=== PATIENT | female | born 1960 | race Caucasian/White ===

== ENCOUNTER 2017-12-11 14:37 | Emergency (ER) | payer MEDICAID ==
[~2017-12-11] VITALS: Ht 160 cm; Wt 55.0 kg
[2017-12-11 14:37] VITALS: BP 166/82
[2017-12-11] MEDS ORDERED: METOCLOPRAMIDE 5 MG/ML, 2ML ONE (14:48)
[2017-12-11] MEDS ORDERED: DICYCLOMINE 10 MG/ML, 2ML ONE (14:48)
[2017-12-11] MEDS ORDERED: SODIUM CHLORIDE 0.9% 1,000ML IVBOLUS ONE (15:00)
[2017-12-11] MEDS ORDERED: SODIUM CHLORIDE FLUSH 10ML SYR IVF ONE (15:00)
[2017-12-11] MEDS ORDERED: METOCLOPRAMIDE 5 MG/ML, 2ML IVPush ONE (15:00)
[2017-12-11] MEDS ORDERED: DICYCLOMINE 10 MG/ML, 2ML IM ONE (15:00)
[2017-12-11 15:06] LABS: ANION GAP 10 mmol/L (5-15); CALCIUM 9.7 mg/dL (8.5-10.1); CHLORIDE 104 mmol/L (98-107); CREATININE 0.77 mg/dL (0.55-1.02)
[2017-12-11 15:07] LABS: ALANINE AMINOTRANSFERASE 25 U/L (12-78); ALBUMIN 4.4 g/dL (3.4-5.0)
[2017-12-11 15:08] LABS: MICROSCOPIC AUTO
[2017-12-11 15:09] LABS: CULTURE INDICATED? NO
[2017-12-11 15:23] LABS: BILIRUBIN,TOTAL 0.6 mg/dL (0.2-1.0)
[2017-12-11 15:24] LABS: ALKALINE PHOSPHATASE 86 U/L (45-117)
[2017-12-11 15:31] LABS: BASOPHILS % (AUTO) 0 % (0-1); EOSINOPHILS # (AUTO) 0.01 x10^3/uL (0-0.4); EOSINOPHILS % (AUTO) 0 % (1-7); LYMPHOCYTES # (AUTO) 1.08 x10^3/uL (1-3.4); LYMPHOCYTES % (AUTO) 10 % (22-44); MD SCAN; MEAN CORPUSCULAR HEMOGLOBIN 31.9 pg (27.0-34.8); MEAN CORPUSCULAR HGB CONC 33.9 g/dL (32.4-35.8); MEAN CORPUSCULAR VOLUME 93.9 fL (80-100); MEAN PLATELET VOLUME 10.1 fL (7.4-10.4); MONOCYTES # (AUTO) 0.24 x10^3/uL (0.2-0.8); MONOCYTES % (AUTO) 2 % (2-9); NEUTROPHILS # (AUTO) 9.46 x10^3/uL (1.8-6.8); NEUTROPHILS % (AUTO) 88 % (42-75); PLATELET COUNT 205 x10^3/uL (130-400); RED BLOOD COUNT 4.87 x10^6/uL (3.82-5.3); RED CELL DISTRIBUTION WIDTH 13.2 % (9.6-15.2)
== END 2017-12-11 16:24 | disposition home or self-care (01) ==
LOC: ED 15:32
DX: K52.9 Noninfective gastroenteritis and colitis, unspecified (principal); E86.0 Dehydration; R93.5 Abnormal findings on diagnostic imaging of other abdominal regions, including retroperitoneum; J44.9 Chronic obstructive pulmonary disease, unspecified; I10 Essential (primary) hypertension; F17.200 Nicotine dependence, unspecified, uncomplicated
CPT/HCPCS: 36415; 74022; 80053; 81001; 83690; 85025; 93005; 96361; 96372; 96374; 99285; J0500; J2765; J7030

== ENCOUNTER 2018-07-08 10:08 | Emergency (ER) | payer MEDICAID ==
[~2018-07-08] VITALS: Ht 154.9 cm; Wt 48.7 kg
[2018-07-08 10:25] VITALS: BP 150/83
[2018-07-08] MEDS ORDERED: DEXAMETHASONE 4 MG/ML, 1ML PO ONE (11:00)
[2018-07-08] MEDS ORDERED: DEXAMETHASONE 4 MG TABLET ONE (11:07)
== END 2018-07-08 11:13 | disposition home or self-care (01) ==
LOC: ED 11:07
DX: J44.1 Chronic obstructive pulmonary disease with (acute) exacerbation (principal); B34.9 Viral infection, unspecified; I10 Essential (primary) hypertension; F17.200 Nicotine dependence, unspecified, uncomplicated
CPT/HCPCS: 71046; 99283; J1100

== ENCOUNTER 2018-12-20 09:32 | Emergency (ER) | payer MEDICAID ==
[~2018-12-20] VITALS: Ht 154.9 cm; Wt 48.4 kg
[2018-12-20 10:55] LABS: ALANINE AMINOTRANSFERASE 22 U/L (12-78); ALBUMIN 3.8 g/dL (3.4-5.0); ANION GAP 8 mmol/L (5-15); CALCIUM 8.4 mg/dL (8.5-10.1); CHLORIDE 105 mmol/L (98-107); CREATININE 0.62 mg/dL (0.55-1.02)
[2018-12-20 10:57] LABS: ALKALINE PHOSPHATASE 88 U/L (45-117); BILIRUBIN,TOTAL 0.3 mg/dL (0.2-1.0); TOTAL PROTEIN 6.9 g/dL (6.4-8.2)
[2018-12-20 11:02] LABS: MEAN CORPUSCULAR HEMOGLOBIN 34.2 pg (27.0-34.8); MEAN CORPUSCULAR VOLUME 100.6 fL (80-100); MEAN PLATELET VOLUME 10.1 fL (7.4-10.4); PLATELET COUNT 177 x10^3/uL (130-400); RED BLOOD COUNT 4.02 x10^6/uL (3.82-5.3); RED CELL DISTRIBUTION WIDTH 13.4 % (9.6-15.2)
[2018-12-20 11:03] LABS: BASOPHILS # (AUTO) 0.04 x10^3/uL (0-0.1); BASOPHILS % (AUTO) 1 % (0-1); EOSINOPHILS # (AUTO) 0.21 x10^3/uL (0-0.4); EOSINOPHILS % (AUTO) 3 % (1-7); LYMPHOCYTES # (AUTO) 2.84 x10^3/uL (1-3.4); LYMPHOCYTES % (AUTO) 44 % (22-44); MD SCAN; MONOCYTES # (AUTO) 0.36 x10^3/uL (0.2-0.8); MONOCYTES % (AUTO) 6 % (2-9); NEUTROPHILS # (AUTO) 3.03 x10^3/uL (1.8-6.8); NEUTROPHILS % (AUTO) 47 % (42-75)
--- NOTE | 2018-12-20 12:00 | NUR ---
PER REGISTRATION STAFF, PT REQUESTING TO LEAVE. THIS SENIOR PRINCIPAL PROCESS ENGINEER OUT TO SPEAK C PT, PT STATES THAT SHE WILL CONTINUE TO WAIT AT THIS TIME. DENIES ANY SPECIFIC NEEDS. UNDERSTANDS POC.
--- NOTE | 2018-12-20 12:20 | NUR ---
PT TO ROOM FROM LOBBY. ERP IN TO SEE PT.
[2018-12-20 13:01] VITALS: BP 128/71
== END 2018-12-20 13:03 | disposition home or self-care (01) ==
LOC: ED 12:49
DX: R11.10 Vomiting, unspecified (principal); I10 Essential (primary) hypertension; E78.5 Hyperlipidemia, unspecified
CPT/HCPCS: 36415; 74021; 80053; 83690; 85025; 99284

== ENCOUNTER 2019-06-19 15:19 | Inpatient (IN) | payer MEDICAID ==
[~2019-06-19] VITALS: Ht 152.4 cm; Wt 47.5 kg
[~2019-06-19 15:19] MED LIST: CETI10TA32 PO; HYDR25TA6 PO; LISI-170 PO; LORA10TA62 PO; OMEP-110 PO
[2019-06-19] MEDS ORDERED: SODIUM CHLORIDE 0.9% 1,000 ML IV ONE (15:37)
[2019-06-19] MEDS ORDERED: ALBUTEROL/IPRATROPIUM 2.5MG/0.5MG, 3 ML ONE (15:42)
--- NOTE | 2019-06-19 15:56 | NUR ---
RT & JUSTUSG BS. LABS HAVE BEEN DRAWN
[2019-06-19] MEDS ORDERED: ALBUTEROL/IPRATROPIUM 2.5MG/0.5MG, 3 ML NPPB ONE (16:00)
[2019-06-19] MEDS ORDERED: SODIUM CHLORIDE FLUSH 10ML SYR IVF ONE (16:00)
[2019-06-19] MEDS ORDERED: methylPREDNISolone SOD SUCC 125 MG/2 ML IVPush ONE (16:00)
[2019-06-19] MEDS ORDERED: AZITHROMYCIN 500 MG in SODIUM CHLORIDE 0.9% 250 ML IVPB ONE (16:00)
[2019-06-19] MEDS ORDERED: methylPREDNISolone SOD SUCC 125 MG/2 ML ONE (16:10)
[2019-06-19] MEDS ORDERED: ONDANSETRON 2MG/ML, 2ML ONE (16:10)
--- NOTE | 2019-06-19 16:10 | NUR ---
REQUESTING ANTI-NAUSEA MED; ERP WILL BE NOTIFIED
--- NOTE | 2019-06-19 16:19 | NUR ---
BLOOD CX BAND ON PT WRIST
[2019-06-19 16:22] LABS: TROPONIN I < 0.015 ng/mL (0.000-0.045)
[2019-06-19] MEDS ORDERED: ONDANSETRON 2MG/ML, 2ML IVPush ONE ×2 (16:30→23:30)
[2019-06-19 16:33] LABS: RAPID INFLUENZA A Negative (Negative); RAPID INFLUENZA B Negative (Negative)
--- NOTE | 2019-06-19 16:34 | NUR ---
DAVIANTHROMAIshan HERNANDEZ, INFUSING AT 250ML/HR VIA PUMP. IV SITE PATENT.
[2019-06-19 16:43] LABS: BASOPHILS # (AUTO) 0.04 x10^3/uL (0-0.1); BASOPHILS % (AUTO) 1 % (0-1); EOSINOPHILS % (AUTO) 1 % (1-7); LYMPHOCYTES # (AUTO) 1.91 x10^3/uL (1-3.4); LYMPHOCYTES % (AUTO) 21 % (22-44); MD NO; MEAN CORPUSCULAR HEMOGLOBIN 32.8 pg (27.0-34.8); MEAN CORPUSCULAR HGB CONC 33.1 g/dL (32.4-35.8); MEAN CORPUSCULAR VOLUME 99.2 fL (80-100); MEAN PLATELET VOLUME 10.7 fL (7.4-10.4); MONOCYTES # (AUTO) 0.51 x10^3/uL (0.2-0.8); MONOCYTES % (AUTO) 6 % (2-9); NEUTROPHILS # (AUTO) 6.47 x10^3/uL (1.8-6.8); NEUTROPHILS % (AUTO) 72 % (42-75); PLATELET COUNT 271 x10^3/uL (130-400); RED CELL DISTRIBUTION WIDTH 15.1 % (9.6-15.2)
--- NOTE | 2019-06-19 17:11 | NUR ---
PT REPORT TO YAEL: BREAK RN'S. PT CARE TRANSFERRED.
[2019-06-19] MEDS ORDERED: LORazepam 2 MG/ML, 1ML ONE (17:17)
--- NOTE | 2019-06-19 17:23 | NUR ---
BREAK RN: PATIENT MEDICATED PER EMAR.
[2019-06-19] MEDS ORDERED: LORazepam 2 MG/ML, 1ML IVPush ONE (17:30)
--- NOTE | 2019-06-19 17:53 | NUR ---
PT REPORT TO BJORN DE LEON FOR ROOM 369
[2019-06-19] MEDS ORDERED: NICOTINE 7 MG/24 HR PATCH.TD24 TD SCH (18:00)
[2019-06-19] MEDS ORDERED: OMEP20CA14 PO (18:04)
[2019-06-19] MEDS ORDERED: SUMA50TA4 PO (18:04)
[2019-06-19] MEDS ORDERED: UMEC1DIS INH (18:04)
[2019-06-19] MEDS ORDERED: LISI10TA2 PO (18:04)
[2019-06-19] MEDS ORDERED: LORA10TA41 PO (18:04)
[2019-06-19] MEDS ORDERED: FLUT1AER3 INH (18:04)
--- NOTE | 2019-06-19 18:04 | NUR ---
PT UNABLE TO RECALL NAMES OF MEDICATIONS. EXTERNAL MED HX ACCESSED. Addendum: 06/19/19 at 1805 by GANESH EXTERNAL MEDICINE HISTORY ACCESSED.
[2019-06-19 19:02] VITALS: BP 169/84
[2019-06-19 20:11] LABS: CREATININE 0.67 mg/dL (0.55-1.02)
[2019-06-19] MEDS: ALBUTEROL SULFATE 2.5 MG/3 ML NPPB SCH (20:49)
[2019-06-19] MEDS: BUDESONIDE 0.5 MG/2 ML INHA NPPB SCH ×2 (20:49→21:00)
[2019-06-19] MEDS ORDERED: OMNIPAQUE 350 MG/ML, 100ML BOTTLE ONE (22:24)
[2019-06-19] MEDS ORDERED: MELATONIN 5 MG TABLET PO PRN (23:30)
[2019-06-20 00:28] VITALS: BP 96/52
[2019-06-20] MEDS: ALBUTEROL SULFATE 2.5 MG/3 ML NPPB SCH ×4 (03:00→20:13)
[2019-06-20 07:54] LABS: CALCIUM 9.2 mg/dL (8.5-10.1); CHLORIDE 106 mmol/L (98-107)
[2019-06-20 08:04] LABS: BASOPHILS # (AUTO) 0.04 x10^3/uL (0-0.1); BASOPHILS % (AUTO) 0 % (0-1); EOSINOPHILS # (AUTO) 0.01 x10^3/uL (0-0.4); EOSINOPHILS % (AUTO) 0 % (1-7); LYMPHOCYTES # (AUTO) 2.34 x10^3/uL (1-3.4); LYMPHOCYTES % (AUTO) 25 % (22-44); MD SCAN; MEAN CORPUSCULAR HEMOGLOBIN 32.4 pg (27.0-34.8); MEAN CORPUSCULAR HGB CONC 33.5 g/dL (32.4-35.8); MEAN CORPUSCULAR VOLUME 96.7 fL (80-100); MEAN PLATELET VOLUME 10.2 fL (7.4-10.4); MONOCYTES # (AUTO) 0.88 x10^3/uL (0.2-0.8); MONOCYTES % (AUTO) 9 % (2-9); NEUTROPHILS # (AUTO) 6.07 x10^3/uL (1.8-6.8); NEUTROPHILS % (AUTO) 65 % (42-75); PLATELET COUNT 265 x10^3/uL (130-400); RED BLOOD COUNT 4.24 x10^6/uL (3.82-5.3)
[2019-06-20 08:06] LABS: ANION GAP 9 mmol/L (5-15)
[2019-06-20] MEDS ORDERED: ONDANSETRON ODT 4 MG PO ONE (08:30)
[2019-06-20] MEDS ORDERED: POTASSIUM CHLORIDE 20 MEQ TAB.ER.PRT PO ONE ×3 (08:30→13:00)
[2019-06-20] MEDS ORDERED: PNEUMOCOCCAL 23 VACCINE IM-VACC ONE (08:30)
[2019-06-20 08:39] VITALS: BP 111/67
[2019-06-20] MEDS ORDERED: HYDROCHLOROTHIAZIDE 25 MG TABLET PO SCH (09:00)
[2019-06-20] MEDS: HYDROCHLOROTHIAZIDE 25 MG TABLET PO SCH (09:00)
[2019-06-20] MEDS: BUDESONIDE 0.5 MG/2 ML INHA NPPB SCH ×2 (09:00→20:14)
[2019-06-20] MEDS ORDERED: OMEPRAZOLE 20 MG CAPSULE.DR PO SCH (09:00)
[2019-06-20] MEDS ORDERED: LISINOPRIL 10 MG TABLET PO SCH (09:00)
[2019-06-20] MEDS ORDERED: CETIRIZINE 10 MG TABLET PO SCH (09:00)
[2019-06-20] MEDS: (Umeclidinium Brm/Vilanterol Tr (Anoro Ellipta 62.5-25 Mcg Inh INH SCH (09:00)
[2019-06-20] MEDS: NICOTINE 21 MG/24 HR PATCH.TD24 TD SCH (09:20)
[2019-06-20] MEDS: AZITHROMYCIN 250 MG TABLET PO SCH (09:21)
[2019-06-20] MEDS: LISINOPRIL 10 MG TABLET PO SCH (09:22)
[2019-06-20 11:55] LABS: CALCIUM 9.2 mg/dL (8.5-10.1); CREATININE 0.59 mg/dL (0.55-1.02)
[2019-06-20 12:06] LABS: ANION GAP 9 mmol/L (5-15); CHLORIDE 104 mmol/L (98-107)
[2019-06-20] MEDS: LORATADINE 10 MG TABLET PO SCH (12:43)
[2019-06-20 13:00] VITALS: BP 125/73
[2019-06-20] MEDS: MAGNESIUM OXIDE 400 MG TABLET PO SCH (13:42)
[2019-06-20 16:44] VITALS: BP 119/77
[2019-06-20 19:51] VITALS: BP 123/71
[2019-06-20 21:30] LABS: CLOSTRIDIUM DIFFICILE ANTIGEN NEGATIVE; CLOSTRIDIUM DIFFICILE TOXIN NEGATIVE (Negative)
[2019-06-20] MEDS: ZOLPIDEM 5MG TABLET PO SCH (22:31)
[2019-06-21] VITALS (10 sets, daily range): BP systolic 101–190; BP diastolic 62–96
[2019-06-21] MEDS ORDERED: ONDANSETRON 2MG/ML, 2ML ONE (00:27)
[2019-06-21] MEDS: ONDANSETRON 2MG/ML, 2ML IVPush PRN ×2 (00:28→08:01)
[2019-06-21] MEDS ORDERED: ACETAMINOPHEN 325 MG TABLET PO PRN (01:30)
[2019-06-21] MEDS ORDERED: MORPHINE SULFATE 4 MG/ML, 1ML IVPush PRN (01:30)
[2019-06-21] MEDS ORDERED: hydrALAzine 20 MG/ML, 1ML ONE (01:43)
[2019-06-21] MEDS ORDERED: LABETALOL 5 MG/ML SYR. (IV ONLY) IVPush PRN (02:00)
[2019-06-21] MEDS ORDERED: hydrALAzine 20 MG/ML, 1ML IV PRN (02:00)
[2019-06-21] MEDS: ALBUTEROL SULFATE 2.5 MG/3 ML NPPB SCH ×3 (02:04→19:03)
[2019-06-21 05:35] LABS: ANION GAP 8 mmol/L (5-15); CALCIUM 8.8 mg/dL (8.5-10.1); CHLORIDE 107 mmol/L (98-107)
[2019-06-21] MEDS ORDERED: POTASSIUM CHLORIDE 20 MEQ in SODIUM CHLORIDE 0.9% 250 ML IV ONE (06:00)
[2019-06-21] MEDS: NICOTINE 21 MG/24 HR PATCH.TD24 TD SCH (08:02)
[2019-06-21] MEDS: LORATADINE 10 MG TABLET PO SCH (08:02)
[2019-06-21] MEDS: MAGNESIUM OXIDE 400 MG TABLET PO SCH (08:02)
[2019-06-21] MEDS: AZITHROMYCIN 250 MG TABLET PO SCH (08:04)
[2019-06-21] MEDS: HYDROCHLOROTHIAZIDE 25 MG TABLET PO SCH (08:06)
[2019-06-21] MEDS: LISINOPRIL 10 MG TABLET PO SCH (08:07)
[2019-06-21] MEDS: OMEPRAZOLE 20 MG CAPSULE.DR PO SCH (08:10)
[2019-06-21] MEDS: (Umeclidinium Brm/Vilanterol Tr (Anoro Ellipta 62.5-25 Mcg Inh INH SCH (08:19)
[2019-06-21] MEDS ORDERED: POTASSIUM CHLORIDE 20 MEQ TAB.ER.PRT PO ONE ×2 (12:30→21:30)
[2019-06-21] MEDS ORDERED: LIDODERM 5% PATCH TD PRN (15:00)
[2019-06-21] MEDS ORDERED: LIDODERM REMOVE PATCH NOTE XX PRN (15:00)
[2019-06-21 16:48] LABS: ANION GAP 7 mmol/L (5-15); CALCIUM 9.1 mg/dL (8.5-10.1); CHLORIDE 106 mmol/L (98-107)
[2019-06-21] MEDS: BUDESONIDE 0.5 MG/2 ML INHA NPPB SCH (19:03)
[2019-06-21] MEDS: ZOLPIDEM 5MG TABLET PO SCH (20:08)
[2019-06-22 00:47] VITALS: BP 118/65
[2019-06-22] MEDS: ALBUTEROL SULFATE 2.5 MG/3 ML NPPB SCH ×3 (02:35→15:00)
[2019-06-22] MEDS: BUDESONIDE 0.5 MG/2 ML INHA NPPB SCH (06:40)
[2019-06-22 07:33] LABS: ANION GAP 5 mmol/L (5-15); CHLORIDE 110 mmol/L (98-107); CREATININE 0.59 mg/dL (0.55-1.02)
[2019-06-22 07:36] VITALS: BP 134/94
[2019-06-22] MEDS: AZITHROMYCIN 250 MG TABLET PO SCH (07:38)
[2019-06-22] MEDS: OMEPRAZOLE 20 MG CAPSULE.DR PO SCH (07:38)
[2019-06-22] MEDS: MAGNESIUM OXIDE 400 MG TABLET PO SCH (07:38)
[2019-06-22] MEDS: LORATADINE 10 MG TABLET PO SCH (07:38)
[2019-06-22] MEDS: NICOTINE 21 MG/24 HR PATCH.TD24 TD SCH (07:38)
[2019-06-22] MEDS: LISINOPRIL 10 MG TABLET PO SCH (07:39)
[2019-06-22] MEDS: HYDROCHLOROTHIAZIDE 25 MG TABLET PO SCH (07:41)
[2019-06-22] MEDS: (Umeclidinium Brm/Vilanterol Tr (Anoro Ellipta 62.5-25 Mcg Inh INH SCH (09:00)
[2019-06-22] MEDS ORDERED: PRED20TA PO (12:09)
[2019-06-22] MEDS ORDERED: MAGN400T50 PO (12:09)
[2019-06-22] MEDS ORDERED: AZIT250T89 PO (12:09)
[2019-06-22] MEDS ORDERED: POTA20TA14 PO (12:09)
[2019-06-22] MEDS ORDERED: ALBU2.5V NPPB (12:24)
[2019-06-22 12:33] VITALS: BP 120/60
== END 2019-06-22 18:12 | disposition home or self-care (01) | DRG 189 ==
LOC: ED 17:09 → EDIP 17:14 → 3N 17:30 → 4EST 06-20 15:50
PROVIDERS: ADMIT Family Medicine; ATTEND Family Medicine
DX: J96.21 Acute and chronic respiratory failure with hypoxia (principal); J44.1 Chronic obstructive pulmonary disease with (acute) exacerbation; E87.2 Acidosis; E78.5 Hyperlipidemia, unspecified; I10 Essential (primary) hypertension; K21.9 Gastro-esophageal reflux disease without esophagitis; F17.210 Nicotine dependence, cigarettes, uncomplicated; K40.20 Bilateral inguinal hernia, without obstruction or gangrene, not specified as recurrent; F41.9 Anxiety disorder, unspecified; E87.6 Hypokalemia; Z87.11 Personal history of peptic ulcer disease; Z23 Encounter for immunization; Z79.899 Other long term (current) drug therapy
CPT/HCPCS: 36415; 87400; 96365; 96375; 99285; J7613; J7620; J7626; 71045; 74177; 80048; 82088; 82565; 82607; 83605; 83735; 83880; 84244; 84484; 85025; 86340; 87040; 87324; 90732; 93005; 94640; G0378; J0456; J2405; J3480; Q9967; J0360; J2060; J2930; J7030; J7050; J7512

== ENCOUNTER 2019-07-27 10:33 | Outpatient (CLI) | payer MEDICAID ==
[~2019-07-27 10:33] MED LIST changes: +ALBU2.5V NPPB; +AZIT250T89 PO; +FLUT1AER3 INH; +LISI10TA2 PO; +LORA10TA41 PO; +MAGN400T50 PO; +OMEP20CA14 PO; +POTA20TA14 PO; +PRED20TA PO; +SUMA50TA4 PO; +UMEC1DIS INH
== END 2019-07-27 23:59 | disposition home or self-care (01) ==
LOC: CFH 10:33
PROVIDERS: ATTEND Internal Medicine Gastroenterology
DX: Z12.11 Encounter for screening for malignant neoplasm of colon (principal); K29.70 Gastritis, unspecified, without bleeding; R14.0 Abdominal distension (gaseous); R11.2 Nausea with vomiting, unspecified; R10.13 Epigastric pain
CPT/HCPCS: 74018

== ENCOUNTER 2019-08-30 18:18 | Observation (INO) | payer MEDICAID ==
[~2019-08-30] VITALS: Ht 154.9 cm; Wt 48.0 kg
[~2019-08-30 18:18] MED LIST changes: -OMEP20CA14 PO; +OMEP20CA20 PO
[2019-08-30] MEDS ORDERED: BENZONATATE 100 MG CAPSULE ONE (18:53)
[2019-08-30] MEDS ORDERED: BENZONATATE 100 MG CAPSULE PO ONE (19:00)
--- NOTE | 2019-08-30 19:00 | NUR ---
xray at bedside with patient.
[2019-08-30 19:13] LABS: ANION GAP 9 mmol/L (5-15); CALCIUM 8.5 mg/dL (8.5-10.1); CHLORIDE 107 mmol/L (98-107); CREATININE 0.67 mg/dL (0.55-1.02)
[2019-08-30] MEDS ORDERED: ONDANSETRON ODT 4 MG ONE (19:24)
[2019-08-30] MEDS ORDERED: POTASSIUM CHLORIDE 20 MEQ PACKET ONE (19:28)
[2019-08-30 19:30] LABS: BASOPHILS # (AUTO) 0.03 x10^3/uL (0-0.1); BASOPHILS % (AUTO) 0 % (0-1); EOSINOPHILS # (AUTO) 0.02 x10^3/uL (0-0.4); EOSINOPHILS % (AUTO) 0 % (1-7); LYMPHOCYTES # (AUTO) 1.58 x10^3/uL (1-3.4); LYMPHOCYTES % (AUTO) 22 % (22-44); MD SCAN; MEAN CORPUSCULAR HEMOGLOBIN 31.8 pg (27.0-34.8); MEAN CORPUSCULAR HGB CONC 33.5 g/dL (32.4-35.8); MEAN CORPUSCULAR VOLUME 94.9 fL (80-100); MEAN PLATELET VOLUME 10.6 fL (7.4-10.4); MONOCYTES # (AUTO) 0.42 x10^3/uL (0.2-0.8); MONOCYTES % (AUTO) 6 % (2-9); NEUTROPHILS # (AUTO) 5.17 x10^3/uL (1.8-6.8); NEUTROPHILS % (AUTO) 72 % (42-75); PLATELET COUNT 191 x10^3/uL (130-400); RED BLOOD COUNT 4.27 x10^6/uL (3.82-5.3); RED CELL DISTRIBUTION WIDTH 13.9 % (9.6-15.2)
[2019-08-30] MEDS ORDERED: POTASSIUM CHLORIDE 20 MEQ PACKET PO ONE (19:30)
[2019-08-30] MEDS ORDERED: POTASSIUM CHLORIDE 40 MEQ in SODIUM CHLORIDE 0.9% 500 ML IV ONE (19:30)
[2019-08-30] MEDS ORDERED: ONDANSETRON ODT 4 MG PO ONE (19:30)
[2019-08-30] MEDS ORDERED: SODIUM CHLORIDE FLUSH 10ML SYR IVF ONE (19:30)
[2019-08-30] MEDS ORDERED: METOCLOPRAMIDE 5 MG/ML, 2ML IVPush PRN (20:30)
[2019-08-30] MEDS ORDERED: GUAIFENESIN/DM 200-20MG, 10ML UDC PO PRN (20:30)
[2019-08-30] MEDS ORDERED: ENALAPRILAT 1.25 MG/ML, 2ML IVPush PRN (20:30)
[2019-08-30] MEDS ORDERED: LABETALOL 5MG/ML, 20ML IVPush PRN (20:30)
[2019-08-30] MEDS ORDERED: ACETAMINOPHEN 325 MG TABLET PO PRN (20:30)
[2019-08-30] MEDS ORDERED: BISACODYL 10 MG SUPP PR PRN (20:30)
[2019-08-30] MEDS ORDERED: DOCUSATE 100 MG CAPSULE PO PRN (20:30)
[2019-08-30] MEDS ORDERED: ENOXAPARIN 40 MG/0.4 ML SQ SCH (20:30)
[2019-08-30] MEDS ORDERED: hydrALAzine 20 MG/ML, 1ML IVPush PRN (20:30)
[2019-08-30] MEDS ORDERED: ONDANSETRON ODT 4 MG PO PRN (20:30)
[2019-08-30] MEDS ORDERED: ONDANSETRON 2MG/ML, 2ML IVPush PRN (20:30)
[2019-08-30] MEDS ORDERED: ALBUTEROL SULFATE 2.5 MG/3 ML NPPB SCH (21:00)
[2019-08-30] MEDS ORDERED: BUDESONIDE 0.5 MG/2 ML INHA NPPB SCH (21:00)
[2019-08-30] MEDS ORDERED: ALBUTEROL/IPRATROPIUM 2.5MG/0.5MG, 3 ML NPPB SCH ×2 (21:01→21:30)
[2019-08-30 21:08] VITALS: BP 204/100
[2019-08-30] MEDS ORDERED: ALBUTEROL SULFATE 2.5 MG/3 ML NPPB PRN (21:30)
[2019-08-30] MEDS ORDERED: ZOLPIDEM 10MG TABLET PO PRN (22:00)
[2019-08-30] MEDS: POTASSIUM CHLORIDE 20 MEQ TAB.ER.PRT PO SCH (22:22)
[2019-08-30 22:37] VITALS: BP 159/78
[2019-08-30 23:27] LABS: ANION GAP 5 mmol/L (5-15); CHLORIDE 105 mmol/L (98-107); CREATININE 0.62 mg/dL (0.55-1.02)
[2019-08-31] MEDS: POTASSIUM CHLORIDE 20 MEQ in LACTATED RINGERS 1,000 ML IV SCH ×2 (01:14→13:55)
[2019-08-31 01:24] VITALS: BP 160/76
[2019-08-31 06:38] LABS: ALANINE AMINOTRANSFERASE 25 U/L (12-78); ALBUMIN 3.2 g/dL (3.4-5.0); ANION GAP 4 mmol/L (5-15); CALCIUM 8.3 mg/dL (8.5-10.1); CHLORIDE 109 mmol/L (98-107)
[2019-08-31 06:40] LABS: ALKALINE PHOSPHATASE 69 U/L (45-117); BILIRUBIN,TOTAL 0.4 mg/dL (0.2-1.0); TOTAL PROTEIN 6.3 g/dL (6.4-8.2)
[2019-08-31 07:06] LABS: MEAN CORPUSCULAR HGB CONC 33.8 g/dL (32.4-35.8); MEAN CORPUSCULAR VOLUME 94.6 fL (80-100); MEAN PLATELET VOLUME 10.9 fL (7.4-10.4); PLATELET COUNT 189 x10^3/uL (130-400); RED BLOOD COUNT 4.05 x10^6/uL (3.82-5.3); RED CELL DISTRIBUTION WIDTH 14.6 % (9.6-15.2)
[2019-08-31 07:09] LABS: BASOPHILS # (AUTO) 0.03 x10^3/uL (0-0.1); BASOPHILS % (AUTO) 1 % (0-1); EOSINOPHILS # (AUTO) 0.07 x10^3/uL (0-0.4); EOSINOPHILS % (AUTO) 1 % (1-7); LYMPHOCYTES # (AUTO) 2.61 x10^3/uL (1-3.4); LYMPHOCYTES % (AUTO) 39 % (22-44); MD MORPH REVIEW ONLY; MONOCYTES # (AUTO) 0.75 x10^3/uL (0.2-0.8); MONOCYTES % (AUTO) 11 % (2-9); NEUTROPHILS # (AUTO) 3.27 x10^3/uL (1.8-6.8); NEUTROPHILS % (AUTO) 49 % (42-75)
[2019-08-31 07:10] LABS: <PLATELET ESTIMATE> ADEQUATE; <RBC MORPHOLOGY> NORMAL; LARGE PLATELETS 1+
[2019-08-31 07:11] LABS: GIANT PLATELETS 1+
[2019-08-31] MEDS: POTASSIUM CHLORIDE 20 MEQ TAB.ER.PRT PO SCH (07:55)
[2019-08-31 08:30] VITALS: BP 162/81
[2019-08-31] MEDS ORDERED: HYDROCHLOROTHIAZIDE 25 MG TABLET PO SCH (09:00)
[2019-08-31] MEDS ORDERED: NICOTINE 14MG/24 HR PATCH.TD24 TD SCH (09:00)
[2019-08-31] MEDS ORDERED: TEMPLATE NON-FORMULARY MED. (Umeclidinium Brm/Vilanterol Tr (Anoro Ellipta 62.5-25 Mcg Inh INH SCH (09:00)
[2019-08-31] MEDS ORDERED: CETIRIZINE 10 MG TABLET PO SCH (09:00)
[2019-08-31] MEDS ORDERED: [UNRECOGNIZED DRUG - OTHER] INH SCH (09:00)
[2019-08-31] MEDS ORDERED: SALMETEROL INH SCH (09:00)
[2019-08-31] MEDS ORDERED: MAGNESIUM OXIDE 400 MG TABLET PO SCH (09:00)
[2019-08-31] MEDS ORDERED: LISINOPRIL 10 MG TABLET PO SCH (09:00)
[2019-08-31] MEDS ORDERED: FLUTICASONE INH SCH (09:00)
[2019-08-31] MEDS ORDERED: POTASSIUM CHLORIDE 20 MEQ TAB.ER.PRT PO ONE ×2 (11:00→14:00)
[2019-08-31 12:54] VITALS: BP 155/87
[2019-08-31] MEDS ORDERED: ONDA4TAB13 PO (14:31)
[2019-08-31] MEDS ORDERED: POTA20TA6 PO (14:31)
== END 2019-08-31 16:22 | disposition home or self-care (01) ==
LOC: ED 20:44 → EDIP 20:48 → INTOOBSV 20:48 → 4WST 20:52 → DCLOUNGE 08-31 16:15
PROVIDERS: ADMIT Family Medicine; ATTEND Family Medicine
DX: R11.2 Nausea with vomiting, unspecified (principal); E87.6 Hypokalemia; I10 Essential (primary) hypertension; J44.9 Chronic obstructive pulmonary disease, unspecified; K62.5 Hemorrhage of anus and rectum; K64.4 Residual hemorrhoidal skin tags; F17.200 Nicotine dependence, unspecified, uncomplicated; Z79.899 Other long term (current) drug therapy
CPT/HCPCS: 36415; 71045; 80048; 80053; 83690; 83735; 84132; 84443; 85025; 93005; 94640; 96365; 96366; 96372; 96375; 97161; 97165; 99285; G0378; J0360; J1650; J2765; J3480; J7040; J7120; J7620; J7626; Q0162

== ENCOUNTER 2020-04-10 08:09 | Inpatient (IN) | payer MEDICAID ==
[~2020-04-10] VITALS: Ht 154.9 cm; Wt 51.7 kg
[~2020-04-10 08:09] MED LIST changes: +ONDA4TAB13 PO; +POTA20TA6 PO
--- NOTE | 2020-04-10 08:17 | NUR ---
PT BIB EMS FOR N/V FOR 2 WEEKS. PT HX OF CHROHNS AND CHOLITIS, SMOKES MARIJUANA CONSISTENTLY. DENIES CP, SOB, OR COUGH GIVEN 12 PHENERGEN AND 250 NS BY EMS.
[2020-04-10] MEDS ORDERED: FAMOTIDINE 20 MG/2 ML ONE (08:58)
[2020-04-10] MEDS ORDERED: ONDANSETRON 2MG/ML, 2ML ONE ×2 (08:58→13:45)
[2020-04-10 09:28] LABS: ALANINE AMINOTRANSFERASE 15 U/L (12-78); ALBUMIN 3.8 g/dL (3.4-5.0); ANION GAP 7 mmol/L (5-15); CALCIUM 9.7 mg/dL (8.5-10.1); CHLORIDE 106 mmol/L (98-107); CREATININE 0.81 mg/dL (0.55-1.02)
[2020-04-10 09:30] LABS: ALKALINE PHOSPHATASE 72 U/L (45-117); BILIRUBIN,TOTAL 0.3 mg/dL (0.2-1.0); TOTAL PROTEIN 7.2 g/dL (6.4-8.2)
[2020-04-10 09:37] LABS: BASOPHILS # (AUTO) 0.08 x10^3/uL (0-0.1); BASOPHILS % (AUTO) 1 % (0-1); EOSINOPHILS # (AUTO) 0.11 x10^3/uL (0-0.4); EOSINOPHILS % (AUTO) 1 % (1-7); LYMPHOCYTES # (AUTO) 1.66 x10^3/uL (1-3.4); LYMPHOCYTES % (AUTO) 14 % (22-44); MD SCAN; MEAN CORPUSCULAR HEMOGLOBIN 32.5 pg (27.0-34.8); MEAN PLATELET VOLUME 9.9 fL (7.4-10.4); MONOCYTES # (AUTO) 0.25 x10^3/uL (0.2-0.8); MONOCYTES % (AUTO) 2 % (2-9); NEUTROPHILS # (AUTO) 10.14 x10^3/uL (1.8-6.8); NEUTROPHILS % (AUTO) 83 % (42-75); PLATELET COUNT 204 x10^3/uL (130-400); RED BLOOD COUNT 4.43 x10^6/uL (3.82-5.3); RED CELL DISTRIBUTION WIDTH 14.6 % (9.6-15.2)
[2020-04-10] MEDS ORDERED: FAMOTIDINE 20 MG/2 ML IV ONE (10:00)
[2020-04-10] MEDS ORDERED: ONDANSETRON 2MG/ML, 2ML IVPush ONE ×2 (10:00→14:00)
[2020-04-10] MEDS ORDERED: POTASSIUM CHLORIDE 20 MEQ TAB.ER.PRT ONE (10:28)
--- NOTE | 2020-04-10 10:29 | NUR ---
PT TOLERATING PO
[2020-04-10] MEDS ORDERED: POTASSIUM CHLORIDE 20 MEQ TAB.ER.PRT PO ONE (10:30)
[2020-04-10] MEDS ORDERED: POTASSIUM CHLORIDE 40 MEQ in SODIUM CHLORIDE 0.9% 500 ML IV ONE (10:30)
--- NOTE | 2020-04-10 10:56 | NUR ---
REPORT TO BRUNA
[2020-04-10] MEDS ORDERED: LISINOPRIL 20 MG TABLET PO ONE (11:00)
--- NOTE | 2020-04-10 11:16 | NUR ---
PT AMBULATED TO RESTROOM WITH STEADY GAIT TO PROVIDE URINE SAMPLE. UA COLLECTED AND SENT TO LAB. PT AMBULATED WITHOUT OXYGEN, PT OXYGEN 100% RA AFTER AMBULATION.
[2020-04-10] MEDS ORDERED: LISINOPRIL 20 MG TABLET ONE (11:18)
--- NOTE | 2020-04-10 11:21 | NUR ---
GIFT SHOP MANAGER PER MAR.
--- NOTE | 2020-04-10 11:23 | NUR ---
PT STATES SHE HAS KEPT HER POTASSIUM PILLS DOWN, DENIES N/V.
[2020-04-10 11:25] LABS: MICROSCOPIC NOT IND
--- NOTE | 2020-04-10 11:55 | NUR ---
ALL RESULTS ARE BACK AT THIS TIME. CHART UP FOR RECHECK. PT RESTING COMFORTABLY ON GURNEY. NADN.
--- NOTE | 2020-04-10 12:52 | NUR ---
Note jeanette in EDM - 04/10/20 at 1253 by [email or web address] PIV PLACED, LABS DRAWN. MEDS ADMIN PER PT POSITIONED FOR COMFORT. SPOUSE AT BEDSIDE.
--- NOTE | 2020-04-10 12:56 | NUR ---
PT TO BE ADMITTED
[2020-04-10] MEDS ORDERED: SODIUM CHLORIDE FLUSH 10ML SYR IVF PRN (13:30)
[2020-04-10 15:59] VITALS: BP 193/107
[2020-04-10] MEDS ORDERED: METOCLOPRAMIDE 5 MG/ML, 2ML IVPush PRN (16:00)
[2020-04-10] MEDS ORDERED: ONDANSETRON 2MG/ML, 2ML IVPush PRN (16:00)
[2020-04-10] MEDS ORDERED: POLYETHYLENE GLYCOL 17 GM PACKET PO PRN (16:00)
[2020-04-10] MEDS ORDERED: BISACODYL 10 MG SUPP PR PRN (16:00)
[2020-04-10] MEDS ORDERED: ENALAPRILAT 1.25 MG/ML, 2ML IVPush PRN (16:00)
[2020-04-10] MEDS ORDERED: ACETAMINOPHEN 325 MG TABLET PO PRN (16:00)
[2020-04-10 16:35] VITALS: BP 193/107
[2020-04-10] MEDS: HEPARIN 5,000 UNITS/ML, 1ML SQ SCH (17:48)
[2020-04-10] MEDS: morphine SULFATE 10 MG/ML, 1ML IVPush PRN (17:48)
[2020-04-10] MEDS: POTASSIUM CHLORIDE 20 MEQ in LACTATED RINGERS 1,000 ML IV SCH (18:03)
[2020-04-10 18:57] VITALS: BP 188/76
[2020-04-10] MEDS: LABETALOL 5MG/ML, 20ML IVPush PRN (19:06)
[2020-04-10 20:16] VITALS: BP 155/94
[2020-04-10] MEDS ORDERED: ALBUTEROL SULFATE 2.5 MG/3 ML NPPB SCH (21:00)
[2020-04-10] MEDS: DOCUSATE 100 MG CAPSULE PO PRN (21:33)
[2020-04-11] MEDS: HEPARIN 5,000 UNITS/ML, 1ML SQ SCH ×3 (01:09→17:34)
[2020-04-11 01:42] VITALS: BP 180/93
[2020-04-11] MEDS: LABETALOL 5MG/ML, 20ML IVPush PRN (01:50)
[2020-04-11 02:23] VITALS: BP 164/86
[2020-04-11] MEDS: morphine SULFATE 10 MG/ML, 1ML IVPush PRN ×4 (02:31→21:25)
[2020-04-11] MEDS: ALBUTEROL HFA 90 MCG/SPRAY INH SCH ×4 (04:02→19:52)
[2020-04-11] MEDS: POTASSIUM CHLORIDE 20 MEQ in LACTATED RINGERS 1,000 ML IV SCH (04:03)
[2020-04-11 04:38] LABS: ANION GAP 8 mmol/L (5-15); CALCIUM 9.2 mg/dL (8.5-10.1); CHLORIDE 104 mmol/L (98-107); CREATININE 0.69 mg/dL (0.55-1.02)
[2020-04-11 05:57] LABS: BASOPHILS # (AUTO) 0.01 x10^3/uL (0-0.1); BASOPHILS % (AUTO) 0 % (0-1); EOSINOPHILS # (AUTO) 0.11 x10^3/uL (0-0.4); EOSINOPHILS % (AUTO) 1 % (1-7); LYMPHOCYTES # (AUTO) 1.33 x10^3/uL (1-3.4); LYMPHOCYTES % (AUTO) 11 % (22-44); MD SCAN; MEAN CORPUSCULAR HEMOGLOBIN 32.1 pg (27.0-34.8); MEAN CORPUSCULAR HGB CONC 32.5 g/dL (32.4-35.8); MEAN PLATELET VOLUME 10.5 fL (7.4-10.4); MONOCYTES # (AUTO) 0.95 x10^3/uL (0.2-0.8); MONOCYTES % (AUTO) 8 % (2-9); NEUTROPHILS # (AUTO) 10.27 x10^3/uL (1.8-6.8); NEUTROPHILS % (AUTO) 81 % (42-75); PLATELET COUNT 211 x10^3/uL (130-400); RED BLOOD COUNT 4.29 x10^6/uL (3.82-5.3); RED CELL DISTRIBUTION WIDTH 14.5 % (9.6-15.2)
[2020-04-11] MEDS ORDERED: POTASSIUM CHLORIDE 20 MEQ TAB.ER.PRT PO ONE (06:30)
[2020-04-11 07:04] VITALS: BP 168/79
[2020-04-11] MEDS: SALMETEROL INH SCH (09:00)
[2020-04-11] MEDS: [UNRECOGNIZED DRUG - OTHER] INH SCH (09:00)
[2020-04-11] MEDS: FLUTICASONE INH SCH (09:00)
[2020-04-11] MEDS: MAGNESIUM OXIDE 400 MG TABLET PO SCH (09:27)
[2020-04-11] MEDS: HYDROCHLOROTHIAZIDE 25 MG TABLET PO SCH (09:27)
[2020-04-11] MEDS: SUMATRIPTAN 50 MG TABLET PO SCH (09:27)
[2020-04-11] MEDS: CETIRIZINE 10 MG TABLET PO SCH (09:28)
[2020-04-11] MEDS: LISINOPRIL 10 MG TABLET PO SCH (09:28)
[2020-04-11 12:09] VITALS: BP 162/87
[2020-04-11] MEDS ORDERED: PROCHLORPERAZINE 25 MG SUPP PR PRN (12:30)
[2020-04-11 19:05] VITALS: BP 160/89
[2020-04-12] MEDS: POTASSIUM CHLORIDE 20 MEQ in LACTATED RINGERS 1,000 ML IV SCH ×2 (00:07→15:34)
[2020-04-12 01:10] VITALS: BP 120/69
[2020-04-12] MEDS: HEPARIN 5,000 UNITS/ML, 1ML SQ SCH ×3 (01:27→17:00)
[2020-04-12] MEDS: ALBUTEROL HFA 90 MCG/SPRAY INH SCH ×5 (03:09→20:39)
[2020-04-12 07:49] VITALS: BP 114/71
[2020-04-12 08:11] LABS: ANION GAP 7 mmol/L (5-15); CALCIUM 8.4 mg/dL (8.5-10.1); CHLORIDE 103 mmol/L (98-107)
[2020-04-12] MEDS: MAGNESIUM OXIDE 400 MG TABLET PO SCH (09:00)
[2020-04-12] MEDS ORDERED: POTASSIUM CHLORIDE 40 MEQ in SODIUM CHLORIDE 0.9% 500 ML IV ONE (09:00)
[2020-04-12] MEDS: [UNRECOGNIZED DRUG - OTHER] INH SCH (09:00)
[2020-04-12] MEDS: FLUTICASONE INH SCH (09:00)
[2020-04-12] MEDS: SUMATRIPTAN 50 MG TABLET PO SCH (09:00)
[2020-04-12] MEDS: HYDROCHLOROTHIAZIDE 25 MG TABLET PO SCH (09:00)
[2020-04-12] MEDS: CETIRIZINE 10 MG TABLET PO SCH (09:00)
[2020-04-12] MEDS: LISINOPRIL 10 MG TABLET PO SCH (09:00)
[2020-04-12] MEDS: SALMETEROL INH SCH (09:00)
[2020-04-12 14:51] VITALS: BP 138/85
[2020-04-12] MEDS ORDERED: BUPIVACAINE/PF 0.5% ONE (16:06)
[2020-04-12] MEDS ORDERED: EPINEPHRINE 1 MG/ML, 1ML ONE (16:06)
[2020-04-12] MEDS ORDERED: FENTANYL PF 250 MCG/5ML ONE ×2 (16:16→17:23)
[2020-04-12] MEDS ORDERED: PROPOFOL 50 ML ONE (16:22)
[2020-04-12] MEDS ORDERED: ROCURONIUM 10 MG/ML,10ML ONE (16:30)
[2020-04-12] MEDS ORDERED: BUPIVACAINE/PF-EPI 0.5% 1:200K INFIL ONE (16:53)
[2020-04-12] MEDS ORDERED: SUCCINYLCHOLINE 20 MG/ML, 10ML ONE (17:53)
[2020-04-12] MEDS ORDERED: ONDANSETRON 2MG/ML, 2ML ONE (17:53)
[2020-04-12] MEDS ORDERED: DEXAMETHASONE 4 MG/ML, 1ML ONE (17:53)
[2020-04-12] MEDS ORDERED: CEFAZOLIN 1,000 MG ONE (17:53)
[2020-04-12] MEDS ORDERED: PROPOFOL 10 MG/ML, 20ML ONE (17:53)
[2020-04-12] MEDS ORDERED: SUGAMMADEX 200 MG/2 ML IVPush ONE (17:59)
[2020-04-12] MEDS ORDERED: MEPERIDINE/PF 25MG/ML,1ML ONE (18:15)
[2020-04-12] MEDS ORDERED: FENTANYL PF 100 MCG/2ML ONE (18:15)
[2020-04-12] MEDS: FENTANYL PF 100 MCG/2ML IV PRN ×2 (18:20→18:35)
[2020-04-12] MEDS ORDERED: METHOCARBAMOL 1,000 MG in DEXTROSE 5% 100 ML IV PRN (18:30)
[2020-04-12] MEDS ORDERED: EPHEDRINE 50 MG/ML, 1ML IVPush PRN (18:30)
[2020-04-12] MEDS ORDERED: hydrALAzine 20 MG/ML, 1ML IV PRN (18:30)
[2020-04-12] MEDS ORDERED: ACETAMINOPHEN 325 MG TABLET PO PRN (18:30)
[2020-04-12] MEDS ORDERED: ONDANSETRON 2MG/ML, 2ML IVPush PRN (18:30)
[2020-04-12] MEDS ORDERED: OXYcodone 5 MG/5 ML ORAL.SOL UDC PO PRN (18:30)
[2020-04-12] MEDS ORDERED: LORazepam 2 MG/ML, 1ML IVPush PRN (18:30)
[2020-04-12] MEDS ORDERED: KETOROLAC 30 MG/1 ML IVPush PRN (18:30)
[2020-04-12] MEDS ORDERED: LABETALOL 5MG/ML, 20ML IV PRN (18:30)
[2020-04-12] MEDS ORDERED: OXYcodone 5 MG/5 ML ORAL.SOL UDC ONE (18:36)
[2020-04-12] MEDS ORDERED: HYDROmorphone 2 MG/ML, 1ML ONE (18:36)
[2020-04-12] MEDS: HYDROmorphone 1 MG/ML, 1ML INJ IVPush PRN ×4 (18:42→19:04)
[2020-04-12 20:39] VITALS: BP 156/82
[2020-04-12] MEDS ORDERED: D5%-LACTATED RINGERS 1,000 ML IV SCH (21:00)
[2020-04-12] MEDS ORDERED: morphine SULFATE 10 MG/ML, 1ML IV PRN (21:00)
[2020-04-12] MEDS ORDERED: POTASSIUM CHLORIDE 20 MEQ TAB.ER.PRT PO ONE (21:30)
[2020-04-12] MEDS: HYDROcodone/APAP 5/325 TABLET PO PRN (22:21)
[2020-04-12] MEDS: D5%-LACTATED RINGERS 1,000 ML IV SCH (22:22)
[2020-04-13] MEDS: D5%-LACTATED RINGERS 1,000 ML IV SCH ×3 (00:25→16:53)
[2020-04-13] MEDS: HEPARIN 5,000 UNITS/ML, 1ML SQ SCH ×3 (01:00→16:53)
[2020-04-13 01:41] VITALS: BP 144/80
[2020-04-13] MEDS: KETOROLAC 30 MG/1 ML IV PRN ×2 (01:41→07:59)
[2020-04-13] MEDS: ALBUTEROL HFA 90 MCG/SPRAY INH SCH ×4 (02:13→20:01)
[2020-04-13 04:47] LABS: ALBUMIN 2.4 g/dL (3.4-5.0); ANION GAP 5 mmol/L (5-15); CALCIUM 8.2 mg/dL (8.5-10.1); CHLORIDE 106 mmol/L (98-107); CREATININE 0.49 mg/dL (0.55-1.02)
[2020-04-13] MEDS: HYDROcodone/APAP 5/325 TABLET PO PRN ×5 (05:25→22:29)
[2020-04-13 06:20] LABS: MEAN CORPUSCULAR HEMOGLOBIN 32.2 pg (27.0-34.8); MEAN CORPUSCULAR HGB CONC 32.4 g/dL (32.4-35.8); MEAN PLATELET VOLUME 10.3 fL (7.4-10.4); PLATELET COUNT 111 x10^3/uL (130-400); RED BLOOD COUNT 3.29 x10^6/uL (3.82-5.3); RED CELL DISTRIBUTION WIDTH 14.4 % (9.6-15.2)
[2020-04-13 06:22] LABS: MD YES
[2020-04-13 06:24] LABS: <PLATELET ESTIMATE> DECREASED; <PLT MORPHOLOGY> NORMAL PLT MORPH; <RBC MORPHOLOGY> NORMAL; BAND#(MANUAL) 0.71 x10^3/uL; BANDS%(MANUAL) 12 % (0-7); EOS#(MANUAL) 0.06 x10^3/uL (0.0-0.4); EOS% (MANUAL) 1 % (1-7); LYMPH#(MANUAL) 0.35 x10^3/uL (1-3.4); LYMPHS% (MANUAL) 6 % (22-44); MONOS#(MANUAL) 0.47 x10^3/uL (0.3-2.7); MONOS% (MANUAL) 8 % (2-9); SEG#(MANUAL) 4.31 x10^3/uL (1.8-6.8); SEGS% (MANUAL) 73 % (42-75)
[2020-04-13 06:33] VITALS: BP 126/77
[2020-04-13] MEDS: MAGNESIUM OXIDE 400 MG TABLET PO SCH (07:57)
[2020-04-13] MEDS: LISINOPRIL 10 MG TABLET PO SCH (07:57)
[2020-04-13] MEDS: NICOTINE 14MG/24 HR PATCH.TD24 TD SCH (07:57)
[2020-04-13] MEDS: CETIRIZINE 10 MG TABLET PO SCH (07:57)
[2020-04-13] MEDS: HYDROCHLOROTHIAZIDE 25 MG TABLET PO SCH (07:57)
[2020-04-13] MEDS ORDERED: SUMATRIPTAN 25 MG TABLET ONE (08:24)
[2020-04-13] MEDS: SUMATRIPTAN 50 MG TABLET PO SCH (08:26)
[2020-04-13] MEDS: FLUTICASONE INH SCH (08:40)
[2020-04-13] MEDS: [UNRECOGNIZED DRUG - OTHER] INH SCH (08:40)
[2020-04-13] MEDS: SALMETEROL INH SCH (08:40)
[2020-04-13 09:43] LABS: MD YES; MEAN CORPUSCULAR HEMOGLOBIN 32.1 pg (27.0-34.8); MEAN CORPUSCULAR HGB CONC 32.3 g/dL (32.4-35.8); MEAN PLATELET VOLUME 9.9 fL (7.4-10.4); PLATELET COUNT 132 x10^3/uL (130-400); RED BLOOD COUNT 3.44 x10^6/uL (3.82-5.3); RED CELL DISTRIBUTION WIDTH 14.6 % (9.6-15.2)
[2020-04-13 10:08] LABS: BAND#(MANUAL) 0.32 x10^3/uL; BANDS%(MANUAL) 5 % (0-7); LYMPH#(MANUAL) 0.82 x10^3/uL (1-3.4); LYMPHS% (MANUAL) 13 % (22-44); MONOS#(MANUAL) 0.82 x10^3/uL (0.3-2.7); MONOS% (MANUAL) 13 % (2-9); SEG#(MANUAL) 4.35 x10^3/uL (1.8-6.8); SEGS% (MANUAL) 69 % (42-75)
[2020-04-13 10:09] LABS: <PLATELET ESTIMATE> ADEQUATE; <PLT MORPHOLOGY> NORMAL PLT MORPH; <RBC MORPHOLOGY> NORMAL
[2020-04-13 12:00] VITALS: BP 127/72
[2020-04-13 19:27] VITALS: BP 131/78
[2020-04-14] MEDS: DOCUSATE 100 MG CAPSULE PO PRN (00:53)
[2020-04-14] MEDS: KETOROLAC 30 MG/1 ML IV PRN ×2 (00:53→12:47)
[2020-04-14] MEDS: HEPARIN 5,000 UNITS/ML, 1ML SQ SCH ×3 (00:53→16:56)
[2020-04-14 02:00] VITALS: BP 126/72
[2020-04-14] MEDS: ALBUTEROL HFA 90 MCG/SPRAY INH SCH ×5 (03:00→21:10)
[2020-04-14 05:54] LABS: ALBUMIN 2.1 g/dL (3.4-5.0); ANION GAP 3 mmol/L (5-15); CALCIUM 8.1 mg/dL (8.5-10.1); CHLORIDE 103 mmol/L (98-107); CREATININE 0.44 mg/dL (0.55-1.02)
[2020-04-14 05:56] LABS: BASOPHILS % (AUTO) 1 % (0-1); EOSINOPHILS % (AUTO) 3 % (1-7); LYMPHOCYTES % (AUTO) 20 % (22-44); MEAN CORPUSCULAR HEMOGLOBIN 32.7 pg (27.0-34.8); MEAN CORPUSCULAR HGB CONC 33.5 g/dL (32.4-35.8); MEAN PLATELET VOLUME 10.4 fL (7.4-10.4); MONOCYTES % (AUTO) 9 % (2-9); NEUTROPHILS % (AUTO) 68 % (42-75); PLATELET COUNT 123 x10^3/uL (130-400); RED BLOOD COUNT 3.23 x10^6/uL (3.82-5.3); RED CELL DISTRIBUTION WIDTH 14.2 % (9.6-15.2)
[2020-04-14] MEDS: D5%-LACTATED RINGERS 1,000 ML IV SCH ×2 (06:17→14:27)
[2020-04-14 06:43] LABS: MD SCAN
[2020-04-14 06:48] VITALS: BP 158/79
[2020-04-14] MEDS ORDERED: SUMATRIPTAN 25 MG TABLET ONE ×2 (07:39→07:42)
[2020-04-14] MEDS: HYDROCHLOROTHIAZIDE 25 MG TABLET PO SCH (07:51)
[2020-04-14] MEDS: HYDROcodone/APAP 5/325 TABLET PO PRN ×4 (07:51→21:11)
[2020-04-14] MEDS: SUMATRIPTAN 50 MG TABLET PO SCH (07:52)
[2020-04-14] MEDS: LISINOPRIL 10 MG TABLET PO SCH (07:52)
[2020-04-14] MEDS: CETIRIZINE 10 MG TABLET PO SCH (07:52)
[2020-04-14] MEDS: MAGNESIUM OXIDE 400 MG TABLET PO SCH (07:53)
[2020-04-14] MEDS: ONDANSETRON 2MG/ML, 2ML IV PRN (07:53)
[2020-04-14] MEDS: NICOTINE 14MG/24 HR PATCH.TD24 TD SCH (07:53)
[2020-04-14] MEDS: FLUTICASONE INH SCH (09:00)
[2020-04-14] MEDS: [UNRECOGNIZED DRUG - OTHER] INH SCH (09:00)
[2020-04-14] MEDS: SALMETEROL INH SCH (09:00)
[2020-04-14 12:13] VITALS: BP 159/89
[2020-04-14 19:14] VITALS: BP 152/84
[2020-04-14] MEDS: MELATONIN 5 MG TABLET PO PRN (21:10)
[2020-04-15 01:08] VITALS: BP 146/77
[2020-04-15] MEDS: D5%-LACTATED RINGERS 1,000 ML IV SCH ×2 (01:11→19:57)
[2020-04-15] MEDS: DOCUSATE 100 MG CAPSULE PO PRN (01:11)
[2020-04-15] MEDS: HEPARIN 5,000 UNITS/ML, 1ML SQ SCH ×3 (01:12→17:41)
[2020-04-15] MEDS: HYDROcodone/APAP 5/325 TABLET PO PRN ×4 (01:12→21:54)
[2020-04-15] MEDS: ALBUTEROL HFA 90 MCG/SPRAY INH SCH ×5 (03:00→19:20)
[2020-04-15] MEDS: [UNRECOGNIZED DRUG - OTHER] INH SCH (07:07)
[2020-04-15] MEDS: FLUTICASONE INH SCH (07:07)
[2020-04-15] MEDS: SALMETEROL INH SCH (07:07)
[2020-04-15 07:20] VITALS: BP 154/81
[2020-04-15] MEDS: NICOTINE 14MG/24 HR PATCH.TD24 TD SCH (07:20)
[2020-04-15] MEDS: SUMATRIPTAN 50 MG TABLET PO SCH (07:22)
[2020-04-15] MEDS: HYDROCHLOROTHIAZIDE 25 MG TABLET PO SCH (07:22)
[2020-04-15] MEDS: MAGNESIUM OXIDE 400 MG TABLET PO SCH (07:22)
[2020-04-15] MEDS: LISINOPRIL 10 MG TABLET PO SCH (07:22)
[2020-04-15] MEDS: CETIRIZINE 10 MG TABLET PO SCH (07:22)
[2020-04-15] MEDS: KETOROLAC 30 MG/1 ML IV PRN (10:09)
[2020-04-15] MEDS ORDERED: ACYCLOVIR 200 MG CAPSULE PO SCH (11:00)
[2020-04-15 11:11] LABS: BASOPHILS % (AUTO) 1 % (0-1); EOSINOPHILS % (AUTO) 4 % (1-7); LYMPHOCYTES % (AUTO) 20 % (22-44); MEAN CORPUSCULAR HEMOGLOBIN 32.3 pg (27.0-34.8); MEAN CORPUSCULAR HGB CONC 33.4 g/dL (32.4-35.8); MEAN PLATELET VOLUME 10.1 fL (7.4-10.4); MONOCYTES % (AUTO) 13 % (2-9); NEUTROPHILS % (AUTO) 61 % (42-75); PLATELET COUNT 160 x10^3/uL (130-400); RED BLOOD COUNT 3.61 x10^6/uL (3.82-5.3); RED CELL DISTRIBUTION WIDTH 14.4 % (9.6-15.2)
[2020-04-15 11:33] LABS: MD SCAN
[2020-04-15] MEDS: ACYCLOVIR 400 MG TABLET PO SCH ×3 (12:17→19:57)
[2020-04-15 12:20] VITALS: BP 164/80
[2020-04-15 19:17] VITALS: BP 176/80
[2020-04-15] MEDS: MELATONIN 5 MG TABLET PO PRN (21:54)
[2020-04-16 01:35] VITALS: BP 152/74
[2020-04-16] MEDS: HYDROcodone/APAP 5/325 TABLET PO PRN ×3 (02:08→13:17)
[2020-04-16] MEDS: HEPARIN 5,000 UNITS/ML, 1ML SQ SCH ×2 (02:08→08:15)
[2020-04-16] MEDS: ALBUTEROL HFA 90 MCG/SPRAY INH SCH ×3 (03:30→15:35)
[2020-04-16 07:16] VITALS: BP 129/77
[2020-04-16] MEDS: NICOTINE 14MG/24 HR PATCH.TD24 TD SCH (08:15)
[2020-04-16] MEDS: MAGNESIUM OXIDE 400 MG TABLET PO SCH (08:15)
[2020-04-16] MEDS: ACYCLOVIR 400 MG TABLET PO SCH (08:15)
[2020-04-16] MEDS: SUMATRIPTAN 50 MG TABLET PO SCH (08:15)
[2020-04-16] MEDS: HYDROCHLOROTHIAZIDE 25 MG TABLET PO SCH (08:15)
[2020-04-16] MEDS: CETIRIZINE 10 MG TABLET PO SCH (08:16)
[2020-04-16] MEDS: D5%-LACTATED RINGERS 1,000 ML IV SCH (08:16)
[2020-04-16] MEDS: SALMETEROL INH SCH (08:17)
[2020-04-16] MEDS: [UNRECOGNIZED DRUG - OTHER] INH SCH (08:17)
[2020-04-16] MEDS: FLUTICASONE INH SCH (08:17)
[2020-04-16 08:18] LABS: ALBUMIN 2.4 g/dL (3.4-5.0); ANION GAP 6 mmol/L (5-15); CALCIUM 8.5 mg/dL (8.5-10.1); CHLORIDE 103 mmol/L (98-107); CREATININE 0.41 mg/dL (0.55-1.02)
[2020-04-16] MEDS: ONDANSETRON 2MG/ML, 2ML IV PRN (08:18)
[2020-04-16] MEDS ORDERED: LISINOPRIL 20 MG TABLET PO SCH (09:00)
[2020-04-16] MEDS ORDERED: OMEPRAZOLE 20 MG CAPSULE.DR PO SCH (10:00)
[2020-04-16 11:06] LABS: MICROSCOPIC NOT IND
[2020-04-16 11:59] VITALS: BP 144/92
[2020-04-16] MEDS ORDERED: LISI1TAB20 PO (12:07)
== END 2020-04-16 15:35 | disposition home or self-care (01) | DRG 330 ==
LOC: ED 08:42 → INTOOBSV 13:18 → EDIP 13:18 → OBSVTOIN 13:18 → 4WST 15:43
PROVIDERS: ADMIT Family Medicine; ATTEND Family Medicine
PROC: 0DB80ZZ Excision of Small Intestine, Open Approach (ICD-10-PCS; 2020-04-12)
PROC: 0YQ50ZZ Repair Right Inguinal Region, Open Approach (ICD-10-PCS; 2020-04-12)
PROC: 0DJ60ZZ Inspection of Stomach, Open Approach (ICD-10-PCS; 2020-04-12)
PROC: 0YQ80ZZ Repair Left Femoral Region, Open Approach (ICD-10-PCS; principal; 2020-04-12 16:15)
DX: K40.31 Unilateral inguinal hernia, with obstruction, without gangrene, recurrent (principal); K41.30 Unilateral femoral hernia, with obstruction, without gangrene, not specified as recurrent; K56.7 Ileus, unspecified; I10 Essential (primary) hypertension; E78.5 Hyperlipidemia, unspecified; E87.6 Hypokalemia; J44.9 Chronic obstructive pulmonary disease, unspecified; F17.210 Nicotine dependence, cigarettes, uncomplicated; Z20.828 Contact with and (suspected) exposure to other viral communicable diseases; I16.0 Hypertensive urgency; Z53.31 Laparoscopic surgical procedure converted to open procedure; Z79.899 Other long term (current) drug therapy; D64.9 Anemia, unspecified
CPT/HCPCS: 36415; 74018; 80048; 80053; 81003; 82040; 83036; 83605; 83690; 85025; 87635; 88307; 94640; G0378; J0171; J0690; J1100; J1170; J1644; J1885; J2405; J2704; J3010; J3480; C1727; C1765; J0330; J2270; J2765; J3490; J7040; J7120; J7121